=== PATIENT | female | born 1970 | race Caucasian/White ===

== ENCOUNTER → 2023-10-20 15:59 | Outpatient (BNVA) | payer OTHER, SELFPAY | PROVIDERS: Family Provider Family Medicine; PCP Family Medicine; Visit Provider Family Medicine | DX: Z91.018 Allergy to other foods (principal); E78.5 Hyperlipidemia, unspecified; I10 Essential (primary) hypertension | CPT/HCPCS: 80053; 80061; 84443; 86003; 86008 ==